=== PATIENT | male | born 1975 ===

== ENCOUNTER 2023-04-05 05:50 | Day surgery (SDC) | payer OTHER ==
[~2023-04-05] VITALS: Ht 172.7 cm; Wt 90.7 kg
[~2023-04-05 05:50] MED LIST: DIOVAN320 MG PO; NORVASC5 MG PO; ZOCOR20 MG PO
[2023-04-05] MEDS ORDERED: OXYC1TAB9 PO (11:21)
== END 2023-04-05 14:05 | disposition home or self-care (01) ==
LOC: CIR.AMB 05:50
PROVIDERS: ATTEND Surgery
DX: K64.2 Third degree hemorrhoids (principal); K62.5 Hemorrhage of anus and rectum; K64.8 Other hemorrhoids; K64.4 Residual hemorrhoidal skin tags; K62.89 Other specified diseases of anus and rectum; I10 Essential (primary) hypertension; Z20.822 Contact with and (suspected) exposure to COVID-19